=== PATIENT | female | born 1950 | race Caucasian/White ===

== ENCOUNTER → 2016-11-05 | Outpatient (CLI) | payer MEDICARE ==
--- NOTE | 2016-11-06 08:51 | MM ---
Reason for exam: screening (asymptomatic). Last mammogram was performed 11 years and 8 months ago. History: Patient is postmenopausal. Family history of breast cancer in cousin. Physical Findings: Nurse did not find any significant physical abnormalities on exam. MG 3D Screening Mammo W/Cad Bilateral CC and MLO view(s) were taken. Prior study comparison: March 13, 2005, workup right diagnostic mammogram. March 07, 2005, bilateral screening mammogram w/CAD. There are scattered fibroglandular densities. Nodularity anterior left breast. Laterally this is suggestive of an intramammary lymph node in the lower outer quadrant, a couple tiny cysts are suspected. These results were verbally communicated with the patient and result sheet given to the patient on 11/05/16. ASSESSMENT: Probably benign, BI-RAD 3 RECOMMENDATION: Follow-up diagnostic mammogram of the left breast in 6 months.
== END | disposition home or self-care (01) ==
LOC: RADMAMWWP 14:41
PROVIDERS: ATTEND Family Medicine
DX: Z12.31 Encounter for screening mammogram for malignant neoplasm of breast (principal)
CPT/HCPCS: 77063; G0202

== ENCOUNTER → 2017-03-25 | Outpatient (CLI) | payer MEDICARE ==
--- NOTE | 2017-03-26 08:00 | US ---
EXAMINATION TYPE: US pelvic complete DATE OF EXAM: 03/25/2017 COMPARISON: NONE CLINICAL HISTORY: R19.09 Right adnexal mass. Seen on MRI and CT 2011, hysterectomy with left oophorec adriane, h/o ovarian cysts TECHNIQUE: TA Date of LMP: hysterectomy EXAM MEASUREMENTS: Uterus: Surgically absent Endometrial Stripe: Surgically absent Right Ovary: 4.0 x 4.5 x 3.9 cm Left Ovary: Surgically absent 1. Uterus: surgically absent 2. Endometrium: Surgically absent 3. Right Ovary: 4.4cm possible ovarian or paraovarian cyst seen, grown since 2011 4. Left Ovary: Surgically absent 5. Bilateral Adnexa: wnl 6. Posterior cul-de-sac: wnl IMPRESSION: Uterus and left ovary are surgically absent. Right simple appearing cystic adnexal struct ure abutting the urinary bladder may represent an ovarian cyst although contiguous ovarian parenchyma is not identified. Short-term follow up repeat pelvic ultrasound with decompressed urinary bladder c ould be performed. Alternatively enhanced pelvic MR could be performed for further characterization.
== END | disposition home or self-care (01) ==
LOC: RADUSMAIN 17:46
PROVIDERS: ATTEND Family Medicine
DX: N83.8 Other noninflammatory disorders of ovary, fallopian tube and broad ligament (principal); R19.09 Other intra-abdominal and pelvic swelling, mass and lump; Z90.710 Acquired absence of both cervix and uterus; Z90.721 Acquired absence of ovaries, unilateral
CPT/HCPCS: 76856

== ENCOUNTER → 2017-04-08 | Outpatient (CLI) | payer MEDICARE ==
--- NOTE | 2017-04-08 23:10 | MR ---
EXAMINATION TYPE: MR pelvis wo con DATE OF EXAM: 04/08/2017 COMPARISON: NONE HISTORY: Intra-abdominal and pelvic swelling/mass, Rt ovarian cyst Standard multiplanar, multisequence MRI departmental protocol Multiplanar, multisequence images of the pelvis were acquired. FINDINGS: There is a 4 cm thin-walled cystic mass in the pelvis on the right side. Bladder distends s moothly. There is no free fluid in the pelvis. Proximal femurs and hip joints are intact. Hysterectom y is noted. I see no pelvic adenopathy. There is no sign of intestinal wall thickening. IMPRESSION: 4 cm thin-walled cystic pelvic mass on the right side is probably a simple ovarian cyst. This is not changed in size compared to ultrasound of 03/25/2017. No evidence of a solid pelvic mass.
== END | disposition home or self-care (01) ==
LOC: RADMRIMAIN 20:24
PROVIDERS: ATTEND Family Medicine
DX: R19.09 Other intra-abdominal and pelvic swelling, mass and lump (principal)
CPT/HCPCS: 72195

== ENCOUNTER → 2017-08-12 | Outpatient (CLI) | payer MEDICARE ==
--- NOTE | 2017-08-12 12:05 | MM ---
Reason for exam: follow-up at short interval from prior study. Last mammogram was performed 9 months ago. History: Patient is postmenopausal. Family history of breast cancer in cousin. Took hormonal contraceptives for 6 months. Physical Findings: Nurse did not find any significant physical abnormalities on exam. MG 3D Diag Mammo W/Cad LT CC and MLO view(s) were taken of the left breast. Prior study comparison: November 05, 2016, bilateral MG 3d screening mammo w/cad. March 13, 2005, workup right diagnostic mammogram. The breast tissue is heterogeneously dense. This may lower the sensitivity of mammography. There are three masses in the upper outer quadrant (possible nodes) and two in the lower outer quadrant adjacent to one another. Ultrasound will be performed. These results were verbally communicated with the patient and result sheet given to the patient on 08/12/17. ASSESSMENT: Incomplete: need additional imaging evaluation, BI-RAD 0 RECOMMENDATION: Ultrasound of the left breast. (lower outer quadrant and upper outer quadrant)
--- NOTE | 2017-08-12 12:08 | USB ---
Reason for exam: additional evaluation requested from abnormal screening. History: Patient is postmenopausal. Family history of breast cancer in cousin. Took hormonal contraceptives for 6 months. US Breast Limited LT Left breast ultrasound demonstrates a 3 x 2 x 3mm cystic lesion at 3 o'clock and a 3 x 3 x 5mm cystic lesion at 1 o'clock. Benign. These results were verbally communicated with the patient and result sheet given to the patient on 08/12/17. ASSESSMENT: Probably benign, BI-RAD 3 RECOMMENDATION: Follow-up diagnostic mammogram of both breasts in 6 months. (6 month follow up for the lower outer quadrant mammographic masses not seen on ultrasound)
== END | disposition home or self-care (01) ==
LOC: RADMAMWWP 10:37
PROVIDERS: ATTEND Family Medicine
DX: R92.8 Other abnormal and inconclusive findings on diagnostic imaging of breast (principal)
CPT/HCPCS: 77065; 76642; G0279

== ENCOUNTER → 2017-09-17 | Outpatient (CLI) | payer MEDICARE ==
--- NOTE | 2017-09-17 13:51 | XR ---
EXAMINATION TYPE: XR chest 2V DATE OF EXAM: 09/17/2017 COMPARISON: 04/28/2011 TECHNIQUE: PA and lateral views submitted. HISTORY: Shortness of breath FINDINGS: The lungs are clear and there is no pneumothorax, pleural effusion, or focal pneumonia. There is a pectus deformity. Hyperinflation of the lungs noted. Tiny calcified granuloma in the right middle lob e. Mild degenerative change of the spine. Hiatal hernia suggested. Calcified lymph nodes in the hilum noted correlate for chronic granulomatous disease. IMPRESSION: 1. No acute process. Correlate for COPD.
== END | disposition home or self-care (01) ==
LOC: RADXRMAIN 13:34
PROVIDERS: ATTEND Family Medicine
DX: J44.9 Chronic obstructive pulmonary disease, unspecified (principal)
CPT/HCPCS: 71046

== ENCOUNTER → 2017-12-17 | Outpatient (CLI) | payer MEDICARE ==
[2017-12-16 11:15] VITALS: BMI 28.3
[2017-12-17 13:32] VITALS: BP 132/69; PULSE 92; RESP 16
--- NOTE | 2017-12-17 14:04 | P.PAINCN ---
History of Present Illness - Reason for Consult Consult date: 12/17/17 Low back pain - Chief Complaint Low back pain - History of Present Illness This is a pleasant 67-year-old female who presents to clinic as a new patient. Patient was a previous patient of ours four years ago receiving radio frequency ablation of her lumbar spine. She presents today with complaint of low back pain and SI joint pain, and muscle spasms in her lower extremity. Patient states that her pain is a 7 out of 10 in severity describes it as throbbing, aching, sharp. Patient states that it originates in her low lumbar/buttock area and radiates into her groin hip and down to her knees. She states that her pain is worse with sitting down, activity, doing daily activities. She states that her pain is better when seated, and with rest, and with medication. Patient is interested in interventional therapies, and wants to wean off of her medication being prescribed by her PCP. Patient denies any bowel/bladder incontinence or lower extremity weakness. Review of system: A thorough 14 point review systems was negative except as mentioned per HPI Physical exam: Vital signs: Stable, reviewed EMR General: Alert and oriented 3, no acute distress HEENT: Normocephalic atraumatic Respiratory: Nonlabored respirations, no wheezing Cardiac: Regular rate and rhythm no peripheral edema Muscular skeletal: 5 out of 5 motor strength upper and lower extremity bilateral Aleks's test: Positive bilateral Facet loading positive bilateral Straight leg raise: Positive bilateral 45 Positive SI joint tenderness to palpation Neurological: Deep tendon reflexes intact bilateral lower extremity, no sensory deficits appreciated and lower extremity. Psychiatric: Normal mood and affect no signs of depression Weddell signs negative Past Medical History Past Medical History: Asthma, GERD/Reflux, Hyperlipidemia, Hypertension, Osteoarthritis (OA), Thyroid Disorder Additional Past Medical History / Comment(s): BRAIN LESIONS-dr. gomez, lower back pain History of Any Multi-Drug Resistant Organisms: None Reported Past Surgical History: Adenoidectomy, Back Surgery, Section, Cholecystectomy, Hernia Repair, Hysterectomy, Orthopedic Surgery, Tonsillectomy Additional Past Surgical History / Comment(s): FUNDAL SURGERY FOR REFLUX X 2, cervical fusion Past Anesthesia/Blood Transfusion Reactions: Previous Problems w/ Anesthesia Additional Past Anesthesia/Blood Transfusion Reaction / Comm: LOW B/P WITH ANESTHESIA, LUNGS COLLAPSED WITH CERVICAL SPINE SURGERY. NO HX BLOOD TRANSFUSION Smoking Status: Former smoker Past Alcohol Use History: None Reported Additional Past Alcohol Use History / Comment(s): QUIT SMOKING 2008, SMOKED APPROX 20 YRS 1PPD Past Drug Use History: None Reported - Past Family History Mother Family Medical History: Cancer Additional Family Medical History / Comment(s): BOWEL,CERVICAL Father Family Medical History: CVA/TIA, Deep Vein Thrombosis (DVT), Myocardial Infarction ([place]) Sister(s) Family Medical History: Cancer Additional Family Medical History / Comment(s): MELANOMA Medications and Allergies Home Medications Medication Instructions Recorded Confirmed Type Albuterol Sulfate [Proair Hfa] 2 puff INHALATION Q6H PRN 11/17/14 12/17/17 History Hydrocodone/Acetaminophen 7.5 mg PO BID PRN 11/17/14 12/17/17 History [Hydrocodon-Acetaminoph 7.5-325] Levothyroxine Sodium [Synthroid] 100 mcg PO QAM 11/17/14 12/17/17 History Montelukast [Singulair] 10 mg PO QAM 11/17/14 12/17/17 History Albuterol Nebulized [Ventolin 2.5 mg INHALATION QID 03/21/16 12/17/17 History Nebulized] Aspirin 81 mg PO DAILY 03/21/16 12/17/17 History Ipratropium Nebulized [Atrovent 0.5 mg INHALATION QID 03/21/16 12/17/17 History Nebulized] Omalizumab [Xolair] 0 mg SQ Q14D 03/21/16 12/17/17 History amLODIPine [Norvasc] 2.5 mg PO DAILY PRN 12/16/17 12/17/17 History Allergies Allergy/AdvReac Type Severity Reaction Status Date / Time Corticosteroids Allergy Swelling Verified 12/17/17 13:21 (Glucocorticoids) Iodine and Iodide Containing Allergy ORAL-Rash/Hives Verified 12/17/17 13:21 Produc & SWELLING, TOPICAL-MANN SKIN levofloxacin [From Levaquin] Allergy generalized Verified 12/17/17 13:21 pain Sulfa (Sulfonamide Allergy Wheezing Verified 12/17/17 13:21 Antibiotics) vancomycin Allergy generalized Verified 12/17/17 13:21 pain statins Allergy Abdominal Uncoded 12/17/17 13:21 Pain Physical Exam Vitals: Vital Signs Pulse Resp BP Pulse Ox 12/17/17 13:23 92 16 132/69 98 Assessment and Plan Assessment: 1. Lumbar spondylosis without myelopathy 2. Lumbar radiculopathy 3. Lumbosacral spondylosis 4. Lumbar degenerative disc disease Plan: 1. Medication: Patient is currently being prescribed low-dose [place] from her PCP taking when necessary. Patient states she takes 1-2 tablets a day if needed Thursday's note no medication. 2. Investigation maps reviewed and appropriate 3. Intervention patient likely could benefit from alterable lower lumbar interventions. She has in the past had a radio frequency ablation of her lumbar spine according to the patient. Physical exam was more significant for SI joint tenderness, and we'll proceed with bilateral SI joint injections without steroid to assess improvement of her low lumbar pain. 4. Disposition: Bilateral sacroiliac joint injections with fluoroscopy in 2-4 weeks Time with Patient: Greater than 30 PQRS Measure Charge Sheet PQRS Narrative: Smoking Status Former smoker Do You Want the Pneumonia No Vaccine AT THIS TIME? Blood Pressure 132/69 Pain Intensity [Bilateral 6 Lower Back] Scale Used Numeric (1 - 10) Hx Alcohol Use (MH) Yes: occasional Home Medications: Ambulatory Orders Albuterol Sulfate [Proair Hfa] 2 puff INHALATION Q6H PRN 11/17/14 Hydrocodone/Acetaminophen [Hydrocodon-Acetaminoph 7.5-325] 7.5 mg PO BID PRN Levothyroxine Sodium [Synthroid] 100 mcg PO QAM 11/17/14 Montelukast [Singulair] 10 mg PO QAM 11/17/14 Albuterol Nebulized [Ventolin Nebulized] 2.5 mg INHALATION QID 03/21/16 Aspirin 81 mg PO DAILY 03/21/16 Ipratropium Nebulized [Atrovent Nebulized] 0.5 mg INHALATION QID 03/21/16 Omalizumab [Xolair] 0 mg SQ Q14D 03/21/16 amLODIPine [Norvasc] 2.5 mg PO DAILY PRN 12/16/17
== END | disposition home or self-care (01) ==
LOC: PNWHC3 12:26
PROVIDERS: ATTEND Anesthesiology
DX: M51.16 Intervertebral disc disorders with radiculopathy, lumbar region (principal); M47.27 Other spondylosis with radiculopathy, lumbosacral region; Z88.8 Allergy status to other drugs, medicaments and biological substances; Z91.048 Other nonmedicinal substance allergy status; Z88.2 Allergy status to sulfonamides; Z88.1 Allergy status to other antibiotic agents; Z79.899 Other long term (current) drug therapy; Z79.891 Long term (current) use of opiate analgesic; Z79.82 Long term (current) use of aspirin; Z87.891 Personal history of nicotine dependence
CPT/HCPCS: 99211

== ENCOUNTER → 2018-01-05 | Outpatient (CLI) | payer MEDICARE ==
--- NOTE | 2018-01-06 16:49 | CT ---
EXAMINATION TYPE: CT sinus wo con DATE OF EXAM: 01/05/2018 COMPARISON: Prior CT sinus 09/22/2014 HISTORY: Patient complains of frontal headache and divet to forehead. CT DLP: 612 mGycm. Automated Exposure Control for Dose Reduction was Utilized. TECHNIQUE: CT scan of the sinuses is performed without contrast, axial images are obtained, coronal r eformatted images are also reviewed. FINDINGS: The paranasal sinuses including the frontal, ethmoid, sphenoid, and maxillary sinuses bila terally are well-aerated without abnormal opacification. The patient shows antrostomy changes bilate rally in the medial aspect of the maxillary sinuses. Bone mineralization is normal. Mild cortical atrophy noted. The globes are intact bilaterally. IMPRESSION: The sinuses are clear and the patient shows postoperative change as on prior exam.
== END | disposition home or self-care (01) ==
LOC: RADCTMAIN 17:58
PROVIDERS: ATTEND Family Medicine
DX: Z09 Encounter for follow-up examination after completed treatment for conditions other than malignant neoplasm (principal); Z98.890 Other specified postprocedural states
CPT/HCPCS: 70486

== ENCOUNTER 2018-01-07 09:36 | Day surgery (SDC) | payer MEDICARE ==
[2017-12-31 15:11] VITALS: BMI 28.3
[~2018-01-07 09:36] MED LIST: LACTATED RINGERS 1,000 ML IV SCH
[2018-01-07 10:35] VITALS: RESP 18; TEMP 98
[2018-01-07] MEDS ORDERED: LIDOCAINE 1% 20 ML VIAL (10MG/ML) FOR IV START INTRADERMA ONE (10:56)
--- NOTE | 2018-01-07 11:05 | P.PCN ---
Date of Procedure: 01/07/18 Surgeon: Mykel Schaefer Description of Procedure: Preoperative diagnoses: Bilateral sacroilitis Postoperative diagnoses: Bilateral sacroilitis. Procedure: Bilateral sacroiliac joint steroid injection under fluoroscopic guidance. Surgeon: Mykel Schaefer MD Anesthesia: IV sedation per hospital guidelines EBL: None Procedure indication: The patient had a history of severe chronic low back pain , diagnosed with sacroiliitis and lumbar sacral facet arthropathy unresponsive to conservative treatment. Procedure description: The patient was seen and identified in the preoperative holding area, risks and benefits and alternative of the procedure and possible complications discussed with the patient, and he agreed with the preceding, patient signed the consent, an IV was started, and vital signs were monitored and were stable throughout the procedure, patient was placed in the prone position or table and the lumbosacral area was prepped and draped with a sterile fashion, vital signs were closely monitored during the procedure, the fluoroscopy camera was placed in the contralateral oblique view on the right sacroiliac joint and the lower part of the joint was identified a 2 mL then a 25 -gauge Quincke-type spinal needle advanced slowly under fluoroscopy and placed in the posterior and inferior border of the right sacroiliac joint, placement confirmed with AP and lateral view, and after appropriate needle placement confirmed and after negative aspiration for heme and CSF and there was , 3 ml of Marcaine 0.5% was injected after negative aspiration, no paresthesia during the injection, no resistance to injection, and the needle was removed. The entire same procedure was repeated for the left sacroiliac joint. No steroid was used for this procedure. Patient tolerated the procedure well without any complication. The patient returned to supine position after the back was cleaned and a Band- Aid applied, the patient transported to recovery room in stable condition and he was monitored for 30 minutes before he was discharged home and then patient was reexamined before going home and patient was discharged in stable condition and patient will follow up with the pain clinic in a few weeks. If she responds favorably to these injections, she would be a good candidate for radiofrequency ablation.
[2018-01-07] MEDS ORDERED: IV FLUID CONTINUATION 1,000 ML IV ONE (11:41)
[2018-01-07 11:54] VITALS: BP 113/62; PULSE 80
--- NOTE | 2018-01-07 12:52 | FL ---
Fluoroscopy HISTORY: Pain 6 seconds fluoroscopy time supplied to the referring clinician. 2 intraoperative C-arm images docume nt the procedure. See dictated report from anesthesia.
== END 2018-01-07 12:10 | disposition home or self-care (01) ==
LOC: ORPAIN 09:36
PROVIDERS: ATTEND Pain Medicine Pain Medicine
DX: G89.29 Other chronic pain (principal); M46.1 Sacroiliitis, not elsewhere classified; M47.27 Other spondylosis with radiculopathy, lumbosacral region; M51.16 Intervertebral disc disorders with radiculopathy, lumbar region; J45.909 Unspecified asthma, uncomplicated; K21.9 Gastro-esophageal reflux disease without esophagitis; E78.5 Hyperlipidemia, unspecified; I10 Essential (primary) hypertension; M19.90 Unspecified osteoarthritis, unspecified site; E07.9 Disorder of thyroid, unspecified; Z91.048 Other nonmedicinal substance allergy status; Z88.2 Allergy status to sulfonamides; Z88.1 Allergy status to other antibiotic agents; Z88.8 Allergy status to other drugs, medicaments and biological substances; Z79.890 Hormone replacement therapy; Z79.82 Long term (current) use of aspirin; Z79.899 Other long term (current) drug therapy; Z87.891 Personal history of nicotine dependence; Z98.1 Arthrodesis status
CPT/HCPCS: J2250; G0260

== ENCOUNTER 2018-01-21 08:59 | Day surgery (SDC) | payer MEDICARE ==
[2018-01-18 11:05] VITALS: BMI 28.9
[2018-01-21 10:19] VITALS: RESP 18; TEMP 97.9
[2018-01-21] MEDS ORDERED: LACTATED RINGERS 1,000 ML IV ONE (10:19)
[2018-01-21] MEDS ORDERED: LIDOCAINE 1% 20 ML VIAL (10MG/ML) FOR IV START INTRADERMA ONE (10:20)
--- NOTE | 2018-01-21 11:18 | P.PCN ---
Date of Procedure: 01/21/18 Procedure(s) Performed: Preoperative diagnoses= 1-bilateral sacroiliitis. 2-lumbosacral spondylosis with facet arthropathy without myelopathy. 3-lumbar DDD Postoperative diagnoses= same as preoperative diagnosis. Procedure= bilateral sacroiliac joint injection under fluoroscopic guidance. Anesthesia= moderate sedation with Versed 2 mg ,and local infiltration with lidocaine 1% 4 ml Estimated blood loss=minimal. Procedure indication= the patient had a history of severe chronic low back pain , diagnosed with sacroiliitis and lumbar sacral facet arthropathy unresponsive to conservative treatment. Procedure description= the patient was seen and identified in the preoperative holding area, risks and benefits and alternative of the procedure and possible complications discussed with the patient, and he agreed with the preceding, patient signed the consent, an IV was started, and vital signs were monitored and were stable throughout the procedure, patient was placed in the prone position or table and the lumbosacral area was prepped and draped with a sterile fashion, vital signs were closely monitored during the procedure, the fluoroscopy camera was placed in the contralateral oblique view on the right sacroiliac joint and the lower part of the joint was identified, local infiltration of the skin and subcutaneous tissue with lidocaine 1% 2 mL then a 22-gauge Quincke-type spinal needle advanced slowly under fluoroscopy and placed in the posterior and inferior border of the right sacroiliac joint, placement confirmed with AP and lateral view, and after appropriate needle placement confirmed and after negative aspiration for heme and CSF and there was no paresthesia during the injection, 4 ml of Ropivacaine 0.5% injected after negative aspiration, the needle removed, and the entire same procedure was repeated for the left sacroiliac joint Patient tolerated the procedure well without any complication, The patient returned to supine position after the back was cleaned and a Band- Aid applied, the patient transported to recovery room in stable condition and he was monitored for 30 minutes before he was discharged home and then patient was reexamined before going home and patient was discharged in stable condition and patient will follow up with the pain clinic in a few weeks NO steroid was used for this procedure, because patient had ALLERGIES to steroid.
[2018-01-21] MEDS ORDERED: IV FLUID CONTINUATION 1,000 ML IV ONE (11:29)
[2018-01-21 12:02] VITALS: BP 119/73; PULSE 68
--- NOTE | 2018-01-21 12:57 | FL ---
Fluoroscopy HISTORY: Pain 4 seconds fluoroscopy time supplied to the referring clinician. 2 intraoperative C-arm images docume nt the procedure. See dictated report from anesthesia.
== END 2018-01-21 12:19 | disposition home or self-care (01) ==
LOC: ORPAIN 08:59
PROVIDERS: ATTEND Specialist
DX: M46.1 Sacroiliitis, not elsewhere classified (principal); M47.817 Spondylosis without myelopathy or radiculopathy, lumbosacral region; M51.36 Other intervertebral disc degeneration, lumbar region; G89.29 Other chronic pain; Z88.1 Allergy status to other antibiotic agents; Z91.013 Allergy to seafood; Z88.8 Allergy status to other drugs, medicaments and biological substances; Z91.048 Other nonmedicinal substance allergy status; J44.9 Chronic obstructive pulmonary disease, unspecified; M06.9 Rheumatoid arthritis, unspecified
CPT/HCPCS: J2250; G0260

== ENCOUNTER → 2018-02-19 | Outpatient (CLI) | payer MEDICARE ==
[~2018-02-19] MED LIST changes: -LACTATED RINGERS 1,000 ML IV SCH; +REGADENOSON 0.4 MG/5 ML SYRINGE IV ONE
--- NOTE | 2018-02-19 09:36 | XR ---
EXAMINATION TYPE: XR skull limited DATE OF EXAM: 02/19/2018 COMPARISON: NONE HISTORY: Pain TECHNIQUE: There is a lucent lesion involving the right calvarium FINDINGS: There is a small lucent lesion overlying the right calvarium. Calcification soft tissue of the left neck likely related carotid artery calcification. Suggestion of previous cervical spine surg wily. No acute fracture. No dislocation. IMPRESSION: Nonspecific dilution lesion involving the right frontal and right parietal calvarium. Cor relate with CT or MRI
--- NOTE | 2018-02-19 11:05 | NM ---
EXAMINATION TYPE: NM stress lexiscan cardiolite DATE OF EXAM: 02/19/2018 COMPARISON: NONE HISTORY: Chest pain TECHNIQUE: After the intravenous administration of 10.2 mCi Tc 99m Sestamibi - Cardiolite resting SP ECT images acquired 40 minutes post injection. The patient received 0.4mg Lexiscan, 25.4 mCi Tc 99m Sestamibi - Stress images obtained [address] injection FINDINGS: Review of stress and rest SPECT images demonstrates no distinct perfusion abnormality. Gated analysi s shows normal wall motion with an estimated left ventricular ejection fraction of 93 %. IMPRESSION: No scintigraphic evidence for reversible ischemia.
--- NOTE | 2018-02-19 14:31 | EST ---
EXERCISE STRESS AGE: 67 SEX: F HT: 5'0" WT: 148 PROTOCOL: Lexiscan Cardiolite Stress Test HEART RATE REST: 73 BLOOD PRESSURE REST: 126/79 MAXIMUM HEART RATE ACHIEVED: 111 MAXIMUM BLOOD PRESSURE: 126/79 85% MPHR: 130 100% MPHR: 153 INDICATIONS: Chest pain. CLINICAL INFORMATION: STRESS DATA: Pretesting physical examination showed heart rate of 73, pressure is 126/79 mmHg. Baseline EKG showed sinus mechanism; 0.4 mg of Lexiscan was given over 15 seconds per protocol. Max heart rate was 111 beats per minute and maximum pressure was 126/79 mmHg. Clinically, the patient did not have any symptoms of chest pain or discomfort during the testing or in recovery and the EKG did not show any significant ST or T-wave abnormalities concerning for ischemia. CONCLUSION: 1. Nondiagnostic echocardiogram stress testing in response to Lexiscan. 2. Please follow up on the Cardiolite portion on separate report from Radiology Department. MMODL / IJN: [id number] /
== END | disposition home or self-care (01) ==
LOC: RADNMMAIN 08:19
PROVIDERS: ATTEND Family Medicine
DX: R07.9 Chest pain, unspecified (principal); M89.8X8 Other specified disorders of bone, other site
CPT/HCPCS: 93017; 70250; 78452; A9500; J2785

== ENCOUNTER → 2018-02-22 | Outpatient (CLI) | payer MEDICARE ==
[2018-02-22 12:29] VITALS: BP 115/78; PULSE 81; RESP 16
--- NOTE | 2018-02-23 11:06 | P.PN ---
Subjective Progress Note Date: 02/22/18 This is follow-up visit for this patient with a history of severe and chronic low back pain secondary to sacroiliitis, lumbosacral spondylosis with facet arthropathy, We have done interventional pain procedures Bilateral sacroiliac joint steroid injectionsX2 ,, she gets more than 50% improvement in her low back pain after the sacroiliac joint steroid injectio Physical Examinations : 1-Constitutional : Cooperative , not in acute distress . 2-HEENT : nech ; supple , no Lymphadenopathy , no Thyromegaly , normal thyroid size . eyes : no ptosis , no icterus, no photophobia . ENT : normal of hearing , normal oropharynx , no Thrush . 3- Respiratory : Chest clear to auscultations Bilaterally , no wheezing , no Rhonchi . 4- Cardiovascular : regular rate and rhythem , S1 , S2 , no S3 , no S4. 5- Gastrointestinal : abdomen soft no tenderness , bowel sounds positive all four quadrents , no organomegally . 6- Genitourinary : Defferred . 7- neurologic: Cranial nerve II to XII intact , no focal neurological deffecit . 8- Psychatric: alert , oriented X 3 , appropriate affect , intact judgment and insight . 9- Lymphatic : no Lymphadenopathy . 10- Musculoskeltal : exams of the Lumber spine =motor strength lower extremities ,thigh and legs .5/5 Sever tenderness over the Sacroiliac joint on the Right , and Left side Assessment and plan = Chronic low back pain secondary to sacroiliitis, lumbosacral spondylosis with facet arthropathy without myelopathy Patient had more than 80% improvement in low back pain after sacroiliac joint steroid injection done twice,, pain relief lasted for a few weeks She will be candidate to have radiofrequency ablation of the sacroiliac joint, (radiofrequency ablation of the dorsal ramus L5-S1 ,and the radiofrequency ablation of the lateral branches of S1/S2/S3 ) Will start with the left side first and later on we'll do the right side, procedure risk and benefits and alternatives discussed with the patient she agreed with proceeding Objective - Vital Signs Vital signs: Vital Signs Temp Pulse 81 02/22/18 12:19 Resp 16 02/22/18 12:19 BP 115/78 02/22/18 12:19 Pulse Ox 97 02/22/18 12:19 Intake & Output 02/22/18 02/23/18 02/23/18 18:59 06:59 18:59 Weight 66.678 kg
== END | disposition home or self-care (01) ==
LOC: PNWHC3 12:09
PROVIDERS: ATTEND Specialist
DX: G89.29 Other chronic pain (principal); M47.817 Spondylosis without myelopathy or radiculopathy, lumbosacral region; M46.97 Unspecified inflammatory spondylopathy, lumbosacral region; M46.1 Sacroiliitis, not elsewhere classified
CPT/HCPCS: 99211

== ENCOUNTER → 2018-03-18 | Outpatient (CLI) | payer MEDICARE ==
--- NOTE | 2018-03-18 14:29 | MM ---
Reason for exam: follow-up at short interval from prior study. Last mammogram was performed 7 months ago. History: Patient is postmenopausal. Family history of breast cancer in cousin. Took hormonal contraceptives for 6 months. Physical Findings: Nurse did not find any significant physical abnormalities on exam. MG 3D Diag Mammo W/Cad ERVIN Bilateral CC and MLO view(s) were taken. Prior study comparison: August 12, 2017, left breast MG 3d diag mammo w/cad LT. November 05, 2016, bilateral MG 3d screening mammo w/cad. The breast tissue is heterogeneously dense. This may lower the sensitivity of mammography. Finding: There are typically benign dystrophic, round calcifications in the left breast. There is a chronic nodularity in the left breast. There is no discrete abnormality. These results were verbally communicated with the patient and result sheet given to the patient on 03/18/18. ASSESSMENT: Benign, BI-RAD 2 RECOMMENDATION: Routine screening mammogram of both breasts in 1 year.
== END | disposition home or self-care (01) ==
LOC: RADMAMWWP 12:53
PROVIDERS: ATTEND Family Medicine
DX: R92.8 Other abnormal and inconclusive findings on diagnostic imaging of breast (principal)
CPT/HCPCS: 77066; G0279; 77062

== ENCOUNTER 2018-03-25 07:49 | Day surgery (SDC) | payer MEDICARE ==
[2018-03-22 13:32] VITALS: BMI 28.3
[~2018-03-25 07:49] MED LIST changes: +LACTATED RINGERS 1,000 ML IV SCH; -REGADENOSON 0.4 MG/5 ML SYRINGE IV ONE
[2018-03-25 08:51] VITALS: TEMP 98.1
[2018-03-25] MEDS ORDERED: LIDOCAINE 1% 20 ML VIAL (10MG/ML) FOR IV START INTRADERMA ONE (08:57)
--- NOTE | 2018-03-25 09:58 | P.PCN ---
Date of Procedure: 03/25/18 Procedure(s) Performed: PREOPERATIVE DIAGNOSIS: 1-Lumbosacral spondylosis with facet arthropathy without myelopathy. 2- Bilateral sacroiliit. post operative Diagnosis: . 1-Lumbosacral spondylosis with facet arthropathy without myelopathy. 2- Bilateral sacroiliit. PROCEDURES: 2- Right multi-site radiofrequency thermocoagulation/ablation of the S1, S2, and S3 lateral branchs.( total 3 peripheral nerves ) The procedure was performed using fluoroscopic guidance during needle placement to assure proper position and maximize safety . ANESTHESIA: LOCAL ANESTHESIA = moderate sedation with intravenous versed 2 mg , and Fentanyle 100 mcg EBL: NONE INDICATION/MEDICAL NECESSITY: History of low back pain secondary to sacroiliitis. The patient reported more than 50% relief of pain symptoms following 2 previous diagnostic blocks with Bupivacaine. PROCEDURE DESCRIPTION: The patient was seen and identified in the preoperative area. Risks, benefits, complications, and alternatives were discussed with the patient. The patient agreed to proceed with the procedure and signed the consent. Vital signs were checked before and after the procedure and they remained stable. Patient ambulated to the procedure room and time out was completed. The patient was placed in the prone position on the procedure table and a pillow was placed under the abdomen to reduce lumbar lordosis. The lumbosacral area was prepped and draped in the usual sterile fashion. S1, S3, and S3 Lateral Branch RF: The lateral margins of the Right S1, S2, and S3 foramina were identified using AP fluoroscopy. Under fluoroscopic guidance, three 10-cm 20 -gauge radiofrequency cannula with a 10-mm active tip nedles total of 6 needles was placed in the medial edge of the right sacroiliac ,starting from the inferior border of the right sacroiliac joint going superiorly total of 6 needles placed , placement confirmed with AP and lateral view ,then the sensory testing performed at 50 Hz and 0 to 1 volt at the three levels with production of concordant pain starting at 0.5 volt. Motor stimulation was done at 2.5 Hz. No radicular symptoms or paresthesias were produced during the testing. The testing done at each level Subsequently, the radiofrequency ablation at a mode of 90 seconds at 80 degrees Celsius at the 3 levels after negative motor and sensory testing and after injecting 0.5 ml of preservative free Bupivacaine 0.5 %. The needle was withdrawn intact after each injection.(no steroid used today , because she has allergy to steroid ) COMPLICATIONS: The patient tolerated the procedure well without any acute complications. DISPOSTION/PLAN: The patient ambulated to the recovery area after the procedure in a stable condition for observation. Patient was reexamined prior to discharge. Patient was observed for 30 minutes in the recovery area and was discharged home, accompanied by an adult, after meeting discharged criteria. Discharge instructions were give to the patient by the staff. Patient was specifically instructed not to drive today and to rest for the rest of the day. The patient will schedule a follow up visit in the clinic in weeks or earlier if needed.
[2018-03-25] MEDS ORDERED: IV FLUID CONTINUATION 1,000 ML IV ONE (10:01)
[2018-03-25 10:09] VITALS: RESP 18
--- NOTE | 2018-03-25 10:13 | FL ---
EXAMINATION TYPE: FL guided pain mgmt statistic DATE OF EXAM: 03/25/2018 HISTORY: Pain Si joint injection, 11 sec fluoro, 5 images scanned
[2018-03-25 10:22] VITALS: BP 108/71; PULSE 72
== END 2018-03-25 10:20 | disposition home or self-care (01) ==
LOC: ORPAIN 07:49
PROVIDERS: ATTEND Specialist
DX: M46.1 Sacroiliitis, not elsewhere classified (principal); M47.817 Spondylosis without myelopathy or radiculopathy, lumbosacral region
CPT/HCPCS: 64640 ×3; J2250; J3301; J3010; 64635; 99152

== ENCOUNTER → 2018-04-07 | Outpatient (CLI) | payer MEDICARE ==
--- NOTE | 2018-04-07 12:18 | US ---
EXAMINATION TYPE: US carotid duplex BILAT DATE OF EXAM: 04/07/2018 COMPARISON: NONE CLINICAL HISTORY: 67-year-old female I67.2 CALCIFICATION CAROTID. Left carotid calcification noted on recent xray TECHNIQUE: Carotid duplex ultrasound examination. Indirect Doppler criteria was utilized. FINDINGS: EXAM MEASUREMENTS: RIGHT: Peak Systolic Velocity (PSV) cm/sec ----- Right CCA: 82.3 ----- Right ICA: 114.2 ----- Right ECA: 92.7 ICA/CCA ratio: 1.4 RIGHT: End Diastole cm/sec ----- Right CCA: 28.5 ----- Right ICA: 31.4 ----- Right ECA: 22.8 LEFT: Peak Systolic Velocity (PSV) cm/sec ----- Left CCA: 92.7 ----- Left ICA: 109.5 ----- Left ECA: 106.9 ICA/CCA ratio: 1.2 LEFT: End Diastole cm/sec ----- Left CCA: 30.5 ----- Left ICA: 44.8 ----- Left ECA: 28.0 VERTEBRALS (direction of flow): Right Vertebral: Antegrade Left Vertebral: Antegrade Local mild to moderate atherosclerotic calcification at both bifurcations.No evidence of significant stenosis IMPRESSION: No hemodynamically significant stenosis appreciated in either internal carotid artery. Criteria for Assigning % of Stenosis / Diameter reduction (Estimation based on the indirect measurements of the internal carotid artery velocities (ICA PSV). 1. Normal (no stenosis)=ICA PSV < 125 cm/s: ratio < 2.0: ICA EDV<40 cm/s. 2. Less than 50% stenosis=ICA PSV < 125 cm/s: ratio < 2.0: ICA EDV<40 cm/s. 3. 50 to 69% stenosis=ICA PSV of 125 to 230 cm/s: ration 2.0 ? 4.0: ICA EDV 40-100 cm/s. 4. Greater than 70% stenosis to near occlusion= ICA PSV > 230 cm/s: ratio > 4.0: ICA EDV > 100 cm/s. 5. Near occlusion= ICA PSV velocities may be low or undetectable: variable ratio and ICA EDV. 6. Total occlusion=unable to detect flow.
== END ==
LOC: RADUSWWP 10:38
PROVIDERS: ATTEND Family Medicine
DX: I67.2 Cerebral atherosclerosis (principal)
CPT/HCPCS: 93880

== ENCOUNTER → 2018-04-09 | Outpatient (CLI) | payer MEDICARE ==
--- NOTE | 2018-04-09 12:22 | CT ---
EXAMINATION TYPE: CT brain wo con DATE OF EXAM: 04/09/2018 COMPARISON: 02/19/2018 HISTORY: Abn skull xray CT DLP: 1135 mGycm Automated exposure control for dose reduction was used. FINDINGS: 2 lytic lesions are seen within the calvarium. The first is seen within the left frontal bone on seri es 4 image 30 measuring 4 mm intradiploic space. There is no inner table or outer table erosion. No d iploic space widening. The second is seen within the right parietal bone posteriorly measuring 7 mm o n image 43. There is cortical thinning of the outer table. These do not appear contiguous with the ex tra-axial space and therefore do not relate to prominent arachnoid granulations. Surgical augmentation of the ostiomeatal complexes are seen. Mild mucosal thickening of the ethmoid s inuses remains. The remainder of the paranasal sinuses and mastoid air cells are well aerated. There is no evidence of acute intracranial hemorrhage, midline shift or mass effect. Mild burden tashi ventricular and subcortical white matter changes are seen with lacunar injury in the left cameron radi jesús involving the posterior frontal lobe. There is age-related supratentorial cerebral atrophy. No [place] spicious extra-axial fluid collection. IMPRESSION: 1. TWO SUBCENTIMETER LYTIC LESIONS OF THE CALVARIUM. DIFFERENTIAL IS WIDE, HOWEVER CONSIDERATION SHOU LD BE GIVEN TO MULTIPLE MYELOMA, METASTASES, OR HEMANGIOMAS. 2. NO ACUTE INTRACRANIAL PROCESS. 3. MILD BURDEN NONSPECIFIC WHITE MATTER CHANGE, LIKELY ON THE BASIS OF CHRONIC MICROANGIOPATHY.
== END ==
LOC: RADCTMAIN 10:55
PROVIDERS: ATTEND Internal Medicine Hematology & Oncology
DX: M89.9 Disorder of bone, unspecified (principal); R90.89 Other abnormal findings on diagnostic imaging of central nervous system
CPT/HCPCS: 70450

== ENCOUNTER → 2018-04-13 | Outpatient (CLI) | payer MEDICARE ==
--- NOTE | 2018-04-13 21:55 | MR ---
EXAMINATION TYPE: MR brain wo/w con DATE OF EXAM: 04/13/2018 COMPARISON: CT brain 09/24/2007, 04/09/2018 and MR brain 03/18/2017 HISTORY: ABN. CT FINDINGS TECHNIQUE: Multiplanar, multisequence images of the brain and brainstem is performed without and with IV contras t, utilizing 7 mL intravenous Gadavist . FINDINGS: The lucent foci within the calvarium seen on CT are stable dating to 2007. Diffusion weight ed images demonstrate no evidence of a recent infarct or other diffusion abnormality. There is no ex tra-axial fluid collection or significant interval change in white matter signal abnormality. Perive ntricular, pericallosal, subcortical scattered foci of hyperintensity are present on inversion recove ry T2-weighted sequences as on prior exam, there are greater than 50 lesions The ventricular system a nd cisternal spaces are normal in size and appearance. The brain volume is age appropriate. Midline structures demonstrate normal morphology. The craniocervical junction appears within normal limits. Post contrast images demonstrate no abnormal enhancement. The dural venous sinuses appear pa tent. The visualized sinuses are clear and the globes are intact. IMPRESSION: Stable lucent foci within the calvarium are benign. Nonspecific white matter demyelinatio n may be due to chronic small vessel ischemia.
== END | disposition home or self-care (01) ==
LOC: RADMRIMAIN 19:43
PROVIDERS: ATTEND Internal Medicine Hematology & Oncology
DX: G37.8 Other specified demyelinating diseases of central nervous system (principal)
CPT/HCPCS: 70553; A9581

== ENCOUNTER → 2018-05-06 | Outpatient (CLI) | payer MEDICARE ==
--- NOTE | 2018-05-06 10:32 | CT ---
EXAMINATION TYPE: CT chest wo con DATE OF EXAM: 05/06/2018 COMPARISON: 07/31/2011 HISTORY: COPD CT DLP: 404 mGycm, Automated exposure control for dose reduction was used. CONTRAST: Performed injected with 0 mL of Isovue 300. TECHNIQUE: Axial images were obtained at 5 mm thick sections. Reconstructed images are reviewed on [employer] computer in the coronal plane. FINDINGS: Portion of the thyroid visualized is normal. No suspicious lung nodules or focal infiltrates are present. Emphysematous changes are present. No enlarged mediastinal or hilar adenopathy is evident. Calcified adenopathy is noted. There is a 0.4 cm calcification within the posterior left midlung. A 0.4 cm calcification is at the left base. A 0.3 cm calcification is in the mid right lung. This may has some eccentric soft tissue adjacent. Sh ort-term follow-up exam in 6 months is recommended. The ascending aorta diameter at the level of the main pulmonary artery is 3.4 cm. The main pulmonar y artery diameter at the bifurcation is 2.[address] sections are obtained through the upper abdomen. Abdomen is essentially unremarkable. IMPRESSIONS: 1. Scattered calcifications within the bilateral lung arzate calcified lymphadenopathy. There may be some soft tissue change adjacent to the calcification in the right midlung. Short-term follow-up in 6 months is recommended.
== END | disposition home or self-care (01) ==
LOC: RADCTMAIN 08:49
PROVIDERS: ATTEND Family Medicine
DX: R59.0 Localized enlarged lymph nodes (principal); J44.9 Chronic obstructive pulmonary disease, unspecified
CPT/HCPCS: 71250

== ENCOUNTER → 2018-05-25 | Outpatient (CLI) | payer MEDICARE ==
[2018-05-25 13:28] VITALS: BP 117/80; PULSE 77; RESP 16
--- NOTE | 2018-05-25 14:06 | P.PAINPG ---
Subjective Progress Note Date: 05/25/18 Principal diagnosis: Bilateral sacroiliitis This a very pleasant 67-year-old woman who returns for follow-up after undergoing bilateral sacroiliac joint radio frequency ablations. She reports that this is substantially reduced her pain. She currently rates her pain as a 3 on a scale 0-10. She is quite happy with this result. Objective - Vital Signs Vital signs: Vital Signs Temp Pulse 77 05/25/18 13:22 Resp 16 05/25/18 13:22 BP 117/80 05/25/18 13:22 Pulse Ox 98 05/25/18 13:22 Intake & Output 05/24/18 05/25/18 05/25/18 18:59 06:59 18:59 Weight 66.224 kg - Exam General: The patient is alert and oriented. Patient is not sedated Patient answers all question appropriately. Cardiac: Heart is regular in rate and rhythm Respiratory: Clear to auscultation. No audible wheezes. Abdomen: Soft nontender nondistended. Lower extremities: Strength is normal bilaterally. Sensation is normal bilaterally. Reflexes are preserved and symmetric bilaterally. Straight leg raise is negative bilaterally. Assessment and Plan (1) Bilateral sacroiliitis Narrative/Plan: Plan of Care 1. Medications: We are not currently prescribed any medications for her. I've advised her to avoid opiate medications to treat her pain symptoms. 2. Interventions: Patient will follow up for repeat of bilateral sacroiliac joint radio frequency ablation on an as-needed basis. 3. Referrals: None 4. Testing: None 5. Follow-up: Repeat sacroiliac radio frequency ablation when necessary Current Visit: Yes Status: Acute Code(s): M46.1 - SACROILIITIS, NOT ELSEWHERE CLASSIFIED SNOMED Code(s): 24685573 PQRS Measure Charge Sheet Measure #130: Documentation of Current Meds in Medical Chart: Patient not eligible for medications to be documented Measure #226: Tobacco Use: Screen & Cessation Intervention: Pt not a tobacco user Measure #111: Pneumonia Vaccination: Pneumococcal vaccine NOT administered or previously given Measure #47: Advance Care Plan: Advance care planning discussed & documented, pt chose/unable to give Measure #412: Opioid Treatment Agreement: No documentation of signed opioid treatment agreement Measure #408: Opioid Therapy Follow-up Evaluation: Patient had f/u eval minimum every 3 months during opioid therapy Measure #317: Preventitive Care & Scrn High Bld Press & F/U: Normal blood pressure, f/u not required Measure #128: Body Mass Index (BMI) Screening & Follow-up: BMI documented ABOVE normal parameters - f/u documented Measure #131: Pain Assessment & Follow-up: Pain positive & plan documented Measure #431: Unhealthy Alcohol Use Preventative Care & Scrn: Patient not identified as an unhealthy alcohol user PQRS Narrative: Smoking Status Former smoker Blood Pressure 117/80 Pain Intensity [Bilateral 3 Lower Back] Scale Used Numeric (1 - 10) Home Medications: Ambulatory Orders Albuterol Sulfate [Proair Hfa] 2 puff INHALATION Q6H PRN 11/17/14 Hydrocodone/Acetaminophen [Hydrocodon-Acetaminoph 7.5-325] 7.5 mg PO BID PRN Levothyroxine Sodium [Synthroid] 100 mcg PO QAM 11/17/14 Montelukast [Singulair] 10 mg PO QAM 11/17/14 Aspirin 81 mg PO DAILY 03/21/16 Ipratropium Nebulized [Atrovent Nebulized] 0.5 mg INHALATION QID 03/21/16 Omalizumab [Xolair] 0 mg SQ Q14D 03/21/16 amLODIPine [Norvasc] 2.5 mg PO DAILY PRN 12/16/17 Flaxseed Oil [[place]-3 Flaxseed Oil] 1,000 mg PO DAILY 12/31/17 [place]-3 Fatty Acids/Fish Oil [Fish Oil 1,000 mg Softgel] 1 each PO DAILY Controlled Substance Measures - Controlled Substance Measures Is patient prescribed a controlled substance at discharge?: No
== END | disposition home or self-care (01) ==
LOC: PNWHC3 12:55
PROVIDERS: ATTEND Pain Medicine Pain Medicine
DX: M46.1 Sacroiliitis, not elsewhere classified (principal); Z87.891 Personal history of nicotine dependence; Z79.82 Long term (current) use of aspirin; Z79.899 Other long term (current) drug therapy; Z98.890 Other specified postprocedural states
CPT/HCPCS: 99211

== ENCOUNTER → 2018-06-16 | Outpatient (CLI) | payer MEDICARE ==
--- NOTE | 2018-06-16 10:05 | FL ---
EXAMINATION TYPE: FL barium swallow DATE OF EXAM: 06/16/2018 CLINICAL HISTORY: Prior Keith fundoplication with revision. Known esophageal spasms. TECHNIQUE: A double contrast esophagram is performed utilizing air and barium. A total of 2 minutes and 10 seconds of fluoroscopic time was utilized during procedure. 46 fluoroscopic images saved. COMPARISON: CT abdomen pelvis of the same date FINDINGS: The esophagus shows abnormal motility as there are tertiary contractions in the supine and upright positions. There is accumulation of contrast within a saccular outpouching at the distal eso phagus. This appears to relate to a large pulsion distal esophageal diverticulum rather than recurren t hiatal hernia as contrast does extend through the distal esophagus and gastroesophageal junction di rectly such as on image 29 and 30. Additionally there is a narrow neck such is appreciated on image 3 4. No evidence of stricture noted. Moderate intraesophageal reflux is seen although no significant ga stroesophageal reflux was seen during real time performance of this study. Contrast is noted to exten d into a gastric diverticulum right laterally such as on image 37 when correlated with the CT of the same date. IMPRESSION: 1. Saccular outpouching at the distal esophagus appears to represent a large pulsion distal esophagea l diverticulum rather than a recurrent hiatal hernia as there is a narrow neck in the protrusion exte nds right laterally from the esophagus. There is resultant moderate grade intraesophageal reflux with no gastroesophageal reflux. 2. Right lateral gastric diverticulum within the fundus. 3. Esophageal spasm and tertiary contractions compatible with motility disorder in both the gravity d ependent and nondependent portions of the exam.
--- NOTE | 2018-06-16 10:11 | CT ---
EXAMINATION TYPE: CT abdomen pelvis wo con DATE OF EXAM: 06/16/2018 COMPARISON: 05/06/2018 HISTORY: Diaphragmatic hernia CT DLP: 731 mGycm Automated exposure control for dose reduction was used. TECHNIQUE: Helical acquisition of images was performed from the lung bases through the pelvis. FINDINGS: LUNG BASES: Benign calcified granuloma is seen within the right lower lobe near the interlobar fissur e. LIVER/GB: Unremarkable unenhanced morphology. Gallbladder surgically absent. PANCREAS: No significant abnormality is seen. SPLEEN: Benign parenchymal calcified granulomas are present. ADRENALS: No significant abnormality is seen. KIDNEYS: No hydronephrosis or nephrolithiasis. Right upper pole exophytic fluid attenuated 1.1 cm cys t is seen REPRODUCTIVE ORGANS: Within the right adnexa there is a 4.7 x 3.7 cm cystic lesion that should be fur ther evaluated with pelvic ultrasound in this postmenopausal female. Uterus appears surgically absent or significantly atrophic. URINARY BLADDER: Incompletely distended. ADENOPATHY: No greater than 1 cm short axis lymph node is seen within the abdomen or pelvis. OSSEOUS STRUCTURES: Mild multilevel degenerative change of the spine are noted with a very mild levo scoliotic curvature of the thoracolumbar junction. BOWEL: Thick-walled saccular outpouching at the distal esophagus on CT appears to represent either a recurrent hiatal hernia or distal esophageal diverticulum however when correlated with the esophagra m of the same date this is favored to represent a distal esophageal diverticulum. Right lateral gastr ic fundal diverticulum is also seen on series 3 image 13. Moderate degree colonic retained stool is noted. Few colonic diverticula are seen without tear coloni c fat stranding. No dilated large or small bowel. All is suboptimally evaluated without contrast. OTHER: Subcentimeter fat filled umbilical hernia is noted. Moderate atherosclerosis of the abdominal aorta and its branches are seen. IMPRESSION: 1. SACCULAR OUTPOUCHING ABOVE THE GASTROESOPHAGEAL JUNCTION ON CT COULD REPRESENT EITHER A RECURRENT HIATAL HERNIA STATUS POST SANGITA FUNDOPLICATION OR ESOPHAGEAL DIVERTICULUM, HOWEVER WHEN CORRELATED W ITH THE ESOPHAGRAM OF THE SAME DATE DISTAL ESOPHAGEAL DIVERTICULUM IS FAVORED. 2. GASTRIC FUNDAL DIVERTICULUM. 3. 4.7 CM RIGHT ADNEXAL CYSTIC LESION. PELVIC ULTRASOUND IS RECOMMENDED FOR FURTHER CHARACTERIZATION IN THIS POSTMENOPAUSAL FEMALE.
== END | disposition home or self-care (01) ==
LOC: RADCTMAIN 08:33
PROVIDERS: ATTEND Surgery Plastic and Reconstructive Surgery
DX: K44.9 Diaphragmatic hernia without obstruction or gangrene (principal); K31.4 Gastric diverticulum; K22.4 Dyskinesia of esophagus
CPT/HCPCS: 74176; 74220

== ENCOUNTER 2018-07-23 07:54 | Day surgery (SDC) | payer MEDICARE ==
[2018-07-20 15:53] VITALS: BMI 28.1
[2018-07-23] MEDS ORDERED: LACTATED RINGERS 1,000 ML IV ONE (08:12)
[2018-07-23 08:13] VITALS: TEMP 97.6
[2018-07-23] MEDS ORDERED: LIDOCAINE 1% 20 ML VIAL (10MG/ML) FOR IV START INTRADERMA ONE (08:13)
--- NOTE | 2018-07-23 09:04 | P.GSHP ---
History of Present Illness H&P Date: 07/23/18 CHIEF COMPLAINT: GERD HISTORY OF PRESENT ILLNESS: The patient is a 67-year-old female who presents reports gastroesophageal reflux disease. Upper endoscopy was offered for further evaluation and management. PAST MEDICAL HISTORY: Please see list. PAST SURGICAL HISTORY: Please see list. MEDICATIONS: Please see list. ALLERGIES: Please see list. SOCIAL HISTORY: No illicit drug use FAMILY HISTORY: No reports of Crohn disease or ulcerative colitis. REVIEW OF ORGAN SYSTEMS: CONSTITUTIONAL: No reports of fevers or chills. GI: Denies any blood in stools or constipation. PHYSICAL EXAM: VITAL SIGNS: Stable GENERAL: Well-developed and pleasant in no acute distress. HEENT: No scleral icterus. Extraocular movements grossly intact. Moist buccal mucosa. NECK: Supple without lymphadenopathy. CHEST: Unlabored respirations. Equal bilateral excursions. CARDIOVASCULAR: Regular rate and rhythm. Distal 2+ pulses. ABDOMEN: Soft, nondistended. MUSCULOSKELETAL: No clubbing, cyanosis, or edema. ASSESSMENT: 1. Gastroesophageal reflux disease PLAN: 1. Recommend proceeding with an upper endoscopy Past Medical History Past Medical History: Asthma, GERD/Reflux, Hyperlipidemia, Hypertension, Osteoarthritis (OA), Thyroid Disorder Additional Past Medical History / Comment(s): mid abd pain under ribs, esophageal spasms,hernia,pocket around the esophagus,following soft diet,BRAIN LESIONS-stm affected at times,drop things and falls easier,eye lids have difficulty opening in the am,general pain,IBS,hiatal hernia History of Any Multi-Drug Resistant Organisms: None Reported Past Surgical History: Adenoidectomy, Back Surgery, Section, Cholecystectomy, Hernia Repair, Hysterectomy, Orthopedic Surgery, Tonsillectomy Additional Past Surgical History / Comment(s): FUNDAL SURGERY FOR REFLUX X 2, cervical fusion and lumbar spine surgery Past Anesthesia/Blood Transfusion Reactions: Previous Problems w/ Anesthesia Additional Past Anesthesia/Blood Transfusion Reaction / Comment(s): LOW B/P WITH SPINAL ANESTHESIA, LUNGS COLLAPSED WITH CERVICAL SPINE SURGERY. NO HX BLOOD TRANSFUSION Smoking Status: Former smoker - Past Family History Mother Family Medical History: Cancer Additional Family Medical History / Comment(s): BOWEL,CERVICAL Father Family Medical History: CVA/TIA, Deep Vein Thrombosis (DVT), Myocardial Infarction ([place]) Sister(s) Family Medical History: Cancer Additional Family Medical History / Comment(s): MELANOMA Medications and Allergies Home Medications Medication Instructions Recorded Confirmed Type Albuterol Sulfate [Proair Hfa] 2 puff INHALATION Q6H PRN 11/17/14 07/20/18 History Hydrocodone/Acetaminophen 7.5 mg PO BID PRN 11/17/14 07/20/18 History [Hydrocodon-Acetaminoph 7.5-325] Levothyroxine Sodium [Synthroid] 100 mcg PO QAM 11/17/14 07/20/18 History Montelukast [Singulair] 10 mg PO QAM 11/17/14 07/20/18 History Aspirin 81 mg PO DAILY 03/21/16 07/20/18 History Ipratropium Nebulized [Atrovent 0.5 mg INHALATION QID PRN 03/21/16 07/20/18 History Nebulized] Omalizumab [Xolair] 0 mg SQ Q14D 03/21/16 07/20/18 History amLODIPine [Norvasc] 2.5 mg PO HS 12/16/17 07/20/18 History Flaxseed Oil [[place]-3 Flaxseed Oil] 1,000 mg PO DAILY 12/31/17 07/20/18 History [place]-3 Fatty Acids/Fish Oil [Fish 1 each PO DAILY 12/31/17 07/20/18 History Oil 1,000 mg Softgel] Ranitidine HCl [Zantac] 150 mg PO BID 07/20/18 07/20/18 History Allergies Allergy/AdvReac Type Severity Reaction Status Date / Time Corticosteroids Allergy Swelling Verified 07/20/18 15:33 (Glucocorticoids) Iodinated Contrast- Oral and Allergy Rash/Hives/ Verified 07/20/18 15:33 IV Dye SWELLING Iodine and Iodide Containing Allergy ORAL-Rash/Hives Verified 07/20/18 15:33 Produc & SWELLING, TOPICAL-MANN SKIN levofloxacin [From Levaquin] Allergy generalized Verified 07/20/18 15:33 pain metoclopramide [From Reglan] Allergy Abdominal Verified 07/20/18 15:33 Pain prednisone Allergy Rash/Hives Verified 07/20/18 15:43 Sulfa (Sulfonamide Allergy Wheezing Verified 07/20/18 15:33 Antibiotics) vancomycin Allergy generalized Verified 07/20/18 15:33 pain red dye 40 Allergy Anaphylaxis Uncoded 07/20/18 15:46 statins Allergy generalized Uncoded 07/20/18 15:33 muscle pain Surgical - Exam Vital Signs Temp Pulse Resp BP Pulse Ox 97.6 F 78 18 118/58 97 07/23/18 08:11 07/23/18 08:11 07/23/18 08:11 07/23/18 08:11 07/23/18 08:11
[2018-07-23] MEDS ORDERED: PROPOFOL 10 MG/ML 20 ML VIAL IV ONE (09:05)
--- NOTE | 2018-07-23 09:25 | P.PCN ---
Date of Procedure: 07/23/18 Description of Procedure: PREOPERATIVE DIAGNOSIS: Gastroesophageal reflux disease. Previous history of fundoplasty POSTOPERATIVE DIAGNOSIS: Gastroesophageal reflux disease. Previous history of fundopla Gastritis. Retained food Diaphragmatic hiatal hernia, recurrent OPERATION: Esophagogastroduodenoscopy with biopsies along antrum. SURGEON: Sunni Green MD ANESTHESIA: MAC. INDICATIONS: The patient is a 67-year-old female who presents with a history of reflux disease. Benefits and risks of the procedure were described. Informed consent was obtained. DESCRIPTION: The patient was brought into the endoscopy suite and laid in the left lateral decubitus position. An Olympus gastroscope was passed along the posterior oropharynx down to the distal esophagus where the squamocolumnar junction was encountered at 38 cm from the incisors. The stomach was entered and no bile reflux was found. Moderate retained food was identified along the distal stomach and proximal to duodenum suspicious for gastroparesis. Additional findings are listed below. Biopsies with cold forceps were obtained of the antrum. The first through third portion of the duodenum was examined and unremarkable. Retroflexion of the scope confirmed Hill grade 1 lower esophageal valve. The squamocolumnar junction demonstrated no LA grade A erosive esophagitis. The stomach was desufflated. The patient tolerated the procedure well. FINDINGS: Squamocolumnar junction 38 cm from the incisors. Diaphragmatic hiatus at 40 cm. Hiatal hernia, 2 cm Tertiary esophageal contractions Hill grade 1 lower esophageal valve. No LA grade A erosive esophagitis. No active duodenitis. Moderate retained food was identified along the distal stomach and proximal to duodenum suspicious for gastroparesis. RECOMMENDATIONS: Upper endoscopy as needed. May benefit from esophagram and evaluation for gastroparesis Plan - Discharge Summary New Discharge Prescriptions: No Action Levothyroxine Sodium [Synthroid] 100 mcg PO QAM Hydrocodone/Acetaminophen [Hydrocodon-Acetaminoph 7.5-325] 7.5 mg PO BID PRN PRN Reason: Pain Albuterol Sulfate [Proair Hfa] 2 puff INHALATION Q6H PRN PRN Reason: Dyspnea Montelukast [Singulair] 10 mg PO QAM Omalizumab [Xolair] 0 mg SQ Q14D Ipratropium Nebulized [Atrovent Nebulized] 0.5 mg INHALATION QID PRN PRN Reason: sob Aspirin 81 mg PO DAILY amLODIPine [Norvasc] 2.5 mg PO HS [place]-3 Fatty Acids/Fish Oil [Fish Oil 1,000 mg Softgel] 1 each PO DAILY Flaxseed Oil [[place]-3 Flaxseed Oil] 1,000 mg PO DAILY Ranitidine HCl [Zantac] 150 mg PO BID Discharge Medication List Albuterol Sulfate [Proair Hfa] 2 puff INHALATION Q6H PRN 11/17/14 [History] Hydrocodone/Acetaminophen [Hydrocodon-Acetaminoph 7.5-325] 7.5 mg PO BID PRN [History] Levothyroxine Sodium [Synthroid] 100 mcg PO QAM 11/17/14 [History] Montelukast [Singulair] 10 mg PO QAM 11/17/14 [History] Aspirin 81 mg PO DAILY 03/21/16 [History] Ipratropium Nebulized [Atrovent Nebulized] 0.5 mg INHALATION QID PRN 03/21/16 [ History] Omalizumab [Xolair] 0 mg SQ Q14D 03/21/16 [History] amLODIPine [Norvasc] 2.5 mg PO HS 12/16/17 [History] Flaxseed Oil [[place]-3 Flaxseed Oil] 1,000 mg PO DAILY 12/31/17 [History] [place]-3 Fatty Acids/Fish Oil [Fish Oil 1,000 mg Softgel] 1 each PO DAILY [History] Ranitidine HCl [Zantac] 150 mg PO BID 07/20/18 [History]
[2018-07-23 09:46] VITALS: BP 115/64; PULSE 71; RESP 18
== END 2018-07-23 10:04 | disposition home or self-care (01) ==
LOC: ORWHC2ENDO 07:54
PROVIDERS: ATTEND Surgery Plastic and Reconstructive Surgery
DX: K29.50 Unspecified chronic gastritis without bleeding (principal); K21.9 Gastro-esophageal reflux disease without esophagitis; K44.9 Diaphragmatic hernia without obstruction or gangrene; E07.9 Disorder of thyroid, unspecified; E78.5 Hyperlipidemia, unspecified; I10 Essential (primary) hypertension; J45.909 Unspecified asthma, uncomplicated; K58.9 Irritable bowel syndrome, unspecified; M19.90 Unspecified osteoarthritis, unspecified site; Z87.891 Personal history of nicotine dependence; Z79.82 Long term (current) use of aspirin; Z90.49 Acquired absence of other specified parts of digestive tract; Z79.890 Hormone replacement therapy; Z79.899 Other long term (current) drug therapy; Z88.8 Allergy status to other drugs, medicaments and biological substances; Z91.041 Radiographic dye allergy status; Z88.3 Allergy status to other anti-infective agents; Z88.1 Allergy status to other antibiotic agents; Z88.2 Allergy status to sulfonamides
CPT/HCPCS: 88305; 43239; J2704

== ENCOUNTER → 2018-09-06 | Outpatient (CLI) | payer MEDICARE ==
--- NOTE | 2018-09-06 14:07 | XR ---
EXAMINATION TYPE: XR ribs bilat w pa chest xray DATE OF EXAM: 09/06/2018 COMPARISON: NONE HISTORY: Left rib pain TECHNIQUE: PA view the chest and 4 views of the bilateral ribs are submitted FINDINGS: Diffuse osteopenia noted. Calcification the right midlung noted. Linear change involving th e left lung most likely related to scar or atelectasis. Surgical clips in the abdomen and there is hy pertrophic change of the spine. Suggestion of previous surgery overlying the cervical spine correlate clinically. Right lower leg rib cage limited. Calcifications in the left hilum noted. IMPRESSION: 1. No acute displaced rib fracture.
== END | disposition home or self-care (01) ==
LOC: RADXRMAIN 13:32
PROVIDERS: ATTEND Family Medicine
DX: S29.9XXA Unspecified injury of thorax, initial encounter (principal)
CPT/HCPCS: 71111

== ENCOUNTER → 2018-11-15 | Outpatient (CLI) | payer MEDICARE ==
[2018-11-15 11:12] VITALS: BP 102/69; PULSE 81; RESP 18
--- NOTE | 2018-11-15 12:18 | P.PN ---
Progress Note - Text Progress Note Date: 11/15/18 This is a pleasant 67-year-old female with chief complaint of bilateral SI joint pain. She had bilateral radio frequency ablations of SI lateral branches. She had excellent relief with the procedure lasting 6 months relief greater than 85%. Her painful symptoms are returning similar to on her initial visit. She is requesting a repeat of radio frequency ablation. Overall she feels that the pain has now returned to the severity it once was. During the 6 months after having that SI radio frequency ablation she noted significant improved ADLs. Patient denies any bowel/bladder incontinence or lower extremity weakness. Review of system: A thorough 14 point review systems was negative except as mentioned per HPI Physical exam: Vital signs: Stable, reviewed EMR General: Alert and oriented 3, no acute distress HEENT: Normocephalic atraumatic Respiratory: Nonlabored respirations, no wheezing Cardiac: Regular rate and rhythm no peripheral edema Muscular skeletal: 5 out of 5 motor strength upper and lower extremity bilateral Aleks's test: Positive bilateral Facet loading positive bilateral Straight leg raise: Positive bilateral 45 Positive SI joint tenderness to palpation Neurological: Deep tendon reflexes intact bilateral lower extremity, no sensory deficits appreciated and lower extremity. Psychiatric: Normal mood and affect no signs of depression [place] signs negative Past Medical History Past Medical History: Asthma, GERD/Reflux, Hyperlipidemia, Hypertension, Osteoarthritis (OA), Thyroid Disorder Additional Past Medical History / Comment(s): BRAIN LESIONS-dr. gomez, lower back pain History of Any Multi-Drug Resistant Organisms: None Reported Past Surgical History: Adenoidectomy, Back Surgery, Section, Cholecystectomy, Hernia Repair, Hysterectomy, Orthopedic Surgery, Tonsillectomy Additional Past Surgical History / Comment(s): FUNDAL SURGERY FOR REFLUX X 2, cervical fusion Past Anesthesia/Blood Transfusion Reactions: Previous Problems w/ Anesthesia Additional Past Anesthesia/Blood Transfusion Reaction / Comm: LOW B/P WITH ANESTHESIA, LUNGS COLLAPSED WITH CERVICAL SPINE SURGERY. NO HX BLOOD TRANSFUSION Smoking Status: Former smoker Past Alcohol Use History: None Reported Additional Past Alcohol Use History / Comment(s): QUIT SMOKING 2008, SMOKED APPROX 20 YRS 1PPD Past Drug Use History: None Reported - Past Family History Mother Family Medical History: Cancer Additional Family Medical History / Comment(s): BOWEL,CERVICAL Father Family Medical History: CVA/TIA, Deep Vein Thrombosis (DVT), Myocardial Infarction (NM) Sister(s) Family Medical History: Cancer Additional Family Medical History / Comment(s): MELANOMA Medications and Allergies Home Medications Medication Instructions Recorded Confirmed Type Albuterol Sulfate [Proair Hfa] 2 puff INHALATION Q6H PRN 11/17/14 12/17/17 History Hydrocodone/Acetaminophen 7.5 mg PO BID PRN 11/17/14 12/17/17 History [Hydrocodon-Acetaminoph 7.5-325] Levothyroxine Sodium [Synthroid] 100 mcg PO QAM 11/17/14 12/17/17 History Montelukast [Singulair] 10 mg PO QAM 11/17/14 12/17/17 History Albuterol Nebulized [Ventolin 2.5 mg INHALATION QID 03/21/16 12/17/17 History Nebulized] Aspirin 81 mg PO DAILY 03/21/16 12/17/17 History Ipratropium Nebulized [Atrovent 0.5 mg INHALATION QID 03/21/16 12/17/17 History Nebulized] Omalizumab [Xolair] 0 mg SQ Q14D 03/21/16 12/17/17 History amLODIPine [Norvasc] 2.5 mg PO DAILY PRN 12/16/17 12/17/17 History Allergies Allergy/AdvReac Type Severity Reaction Status Date / Time Corticosteroids Allergy Swelling Verified 12/17/17 13:21 (Glucocorticoids) Iodine and Iodide Containing Allergy ORAL-Rash/Hives Verified 12/17/17 13:21 Produc & SWELLING, TOPICAL-MANN SKIN levofloxacin [From Levaquin] Allergy generalized Verified 12/17/17 13:21 pain Sulfa (Sulfonamide Allergy Wheezing Verified 12/17/17 13:21 Antibiotics) vancomycin Allergy generalized Verified 12/17/17 13:21 pain statins Allergy Abdominal Uncoded 12/17/17 13:21 Pain Assessment and Plan Assessment: 1. Lumbosacral spondylosis 2. Lumbar radiculopathy 3. Lumbar spondylosis without myelopathy 4. Lumbar degenerative disc disease Plan: 1. Medication: Patient is currently being prescribed low-dose [place] from her PCP taking when necessary. Patient states she takes 1-2 tablets a day if needed Thursday's note no medication. 2. Investigation maps reviewed and appropriate 3. Intervention: Procedure next available date. 4. Disposition: We'll schedule patient for bilateral L5, S1 to S3 lateral branch radio frequency ablation. Risks and benefits of the procedure were discussed the patient in detail. She wishes to proceed knowing that bleeding, infection, rare nerve injury could be potential complications. Time with Patient: Greater than 30 PQRS Measure Charge Sheet PQRS Narrative: Smoking Status Former smoker Do You Want the Pneumonia No Vaccine AT THIS TIME? Blood Pressure 102/69 Pain Intensity [Bilateral 5 Lower Back] Scale Used Numeric (1 - 10) Hx Alcohol Use () Yes: occasional
== END | disposition home or self-care (01) ==
LOC: PNWHC3 10:37
PROVIDERS: ATTEND Anesthesiology
DX: M51.36 Other intervertebral disc degeneration, lumbar region (principal); M47.26 Other spondylosis with radiculopathy, lumbar region; M47.817 Spondylosis without myelopathy or radiculopathy, lumbosacral region; Z87.891 Personal history of nicotine dependence; Z98.890 Other specified postprocedural states; Z88.1 Allergy status to other antibiotic agents; Z88.2 Allergy status to sulfonamides; Z88.8 Allergy status to other drugs, medicaments and biological substances
CPT/HCPCS: 99211

== ENCOUNTER → 2020-02-10 | Outpatient (CLI) | payer MEDICARE ==
[2020-02-10 13:17] LABS: Basophils # (A) 0.1 k/uL (0-0.2); Basophils % (A) 1 %; Eosinophils # (A) 0.3 k/uL (0-0.7); Eosinophils % (A) 3 %; HGB 12.1 gm/dL (11.4-16.0); Hypochromasia Slight; Lymphocytes # (A) 2.6 k/uL (1.0-4.8); Lymphocytes % (A) 29 %; MCH 29.5 pg (25.0-35.0); MCHC 30.3 g/dL (31.0-37.0); MCV 97.5 fL (80.0-100.0); Mean Platelet Volume 7.4; Monocytes # (A) 0.5 k/uL (0-1.0); Monocytes % (A) 6 %; Neutrophils # (A) 5.1 k/uL (1.3-7.7); Neutrophils % (A) 58 %; Platelet Count 337 k/uL (150-450); WBC 8.8 k/uL (3.8-10.6)
[2020-02-10 20:17] LABS: Erythrocyte Sedimentation Rate 27 mm/Hr (0-30)
[2020-02-10 20:59] LABS: African American GFR (CKD) 66.6 (60.0-200.0); Non-African American GFR(CKD) 57.4 (60.0-200.0)
== END | disposition home or self-care (01) ==
LOC: LABWHC1 12:10
PROVIDERS: ATTEND Internal Medicine Rheumatology
DX: Z51.81 Encounter for therapeutic drug level monitoring (principal); Z79.899 Other long term (current) drug therapy
CPT/HCPCS: 36415; 82565; 84450; 84460; 85025; 85652